=== PATIENT | female | born 1940 | race Caucasian/White ===

== ENCOUNTER 2017-04-02 10:22 | Day surgery (SDC) | payer MEDICARE, OTHER ==
--- NOTE | ~2017-04-02 | EGD ---
EGD REPORT [facility] [address] [address] NAME: LILLY MARIE : [birth year] STATUS : REG [facility] [place] PAT#: [id number] AGE: 77 ADM/REG DATE : 04/02/17 MR#: [id number] REPORT SERV DATE: 04/02/17 DICTATED BY: WINNIE FIGUEROA DATE: 04/02/17 REPORT STATUS : Draft TRANSCRIBED BY: [facility] DATE: 04/02/17 Endoscopy Center Patient Name: Lilly Marie Date of : 1940 Attending MD: WINNIE FIGUEROA MD Procedure Date No Time: 04/02/2017 Procedure: Upper GI endoscopy Indications: Epigastric abdominal pain, Dysphagia, Gastro-esophageal reflux disease Referring MD: KIMBERLY HUFF Medicines: Propofol per Anesthesia Complications: No immediate complications. Procedure: Pre-Anesthesia Assessment: - ASA Grade Assessment: III - A patient with severe systemic disease. After obtaining informed consent, the endoscope was passed under direct vision. Throughout the procedure, the patient's blood pressure, pulse, and oxygen saturations were monitored continuously. The GIF [id number] was introduced through the mouth, and advanced to the third part of duodenum. The upper GI endoscopy was accomplished without difficulty. The patient tolerated the procedure well. Findings: Non-severe esophagitis with no bleeding was found in the entire esophagus. No endoscopic abnormality was evident in the esophagus to explain the patient's complaint of dysphagia. It was decided, however, to proceed with dilation. A guidewire was placed and the scope was withdrawn. Dilation was performed with a Savary dilator with mild resistance at 60 Fr. The esophagus looked satisfactory post dilation A small hiatus hernia was present. Seen on retroflexion, done prior to dilation Diffuse mild inflammation characterized by congestion (edema) and erythema was found in the entire examined stomach. Localized mild inflammation characterized by congestion (edema) and erythema was found in the duodenal bulb. The 2nd part of the duodenum and 3rd part of the duodenum were normal. Impression: - Non-severe reflux esophagitis. - No endoscopic esophageal abnormality to explain patient's dysphagia. Esophagus dilated. Dilated. - Hiatus hernia. - Gastritis. EGD REPORT [address] [address] NAME: LILLY MARIE : [birth year] STATUS : REG [facility] [place] PAT#: [id number] AGE: 77 ADM/REG DATE : 04/02/17 MR#: [id number] REPORT SERV DATE: 04/02/17 DICTATED BY: WINNIE FIGUEROA DATE: 04/02/17 REPORT STATUS : Draft TRANSCRIBED BY: [employer] DATE: 04/02/17 - Duodenitis. - Normal 2nd part of the duodenum and 3rd part of the duodenum. Recommendation: - Patient has a contact number available for emergencies. The signs and symptoms of potential delayed complications were discussed with the patient. Return to normal activities tomorrow. Written discharge instructions were provided to the patient. - Clear liquid diet today. - diet is clear liquid today, full liquid tomorrow, soft mushy food the next day, and resume usual diet the day after that. - Continue present medications. - Use Protonix (pantoprazole) 40 mg PO BID. - take 30-60 minutes before breakfast and supper - Use sucralfate tablets 1 gram PO QID. - take before each meal and at bedtime - Return to my office as previously scheduled. - Discharge patient to home. Procedure Code(s): --- Professional --- 47678, Esophagogastroduodenoscopy, flexible, transoral; with insertion of guide wire followed by passage of dilator(s) through esophagus over guide wire Diagnosis Code(s): --- Professional --- K21.0, Gastro-esophageal reflux disease with esophagitis R13.10, Dysphagia, unspecified K44.9, Diaphragmatic hernia without obstruction or gangrene K29.70, Gastritis, unspecified, without bleeding K29.80, Duodenitis without bleeding R10.13, Epigastric pain CPT copyright 2013 [employer]. All rights reserved. The codes documented in this report are preliminary and upon professional caster review may be revised to meet current compliance requirements. Winnie Figueroa MD WINNIE FIGUEROA MD 04/02/2017 3:03 PM This report has been signed electronically. Number of Addenda: 0 EGD REPORT [facility] [address] [place] [address] NAME: LILLY MARIE JACOB : [birth year] STATUS : REG [facility] [place] PAT#: [id number] AGE: 77 ADM/REG DATE : 04/02/17 MR#: [id number] REPORT SERV DATE: 04/02/17 DICTATED BY: WINNIE FIGUEROA DATE: 04/02/17 REPORT STATUS : Draft TRANSCRIBED BY: [employer] [facility] DATE: 04/02/17 Note Initiated On: 04/02/2017 2:19 PM Scope Withdrawal Time 0 hours 0 minutes 0 seconds [address] [place] [address]
[~2017-04-02 10:22] MED LIST: ALLEGRA180 PO; AMB10 PO; AT25 PO; BENTYL10 PO; CALTRA600D PO; CALTRAT600 PO; CELEXA10 PO; CELEXA20 PO; CENTRUM TAB1 TAB PO; CO Q-10100 MG PO; COENZYME Q10 PO; CYANO1000T PO; CYMBALTA30 PO; DAPSONE25 MG OR; DAPSONE25 MG PO; ESTRACE1 MG PO; ESTRADIOL PO; FISH-EPA1000 MG PO; FLONASE NAS; IRON325 MG PO; LEVAQUIN750 MG PO; LEVSINTAB PO; LOTE10 PO; LOTE20 PO; LOTE40 PO; LYRICA100 MG PO; M-CLEAR WC PO; MELATONIN5 M1 PO; MEVACOR PO; MULTIVIT/MIN PO; NEXIUM20 M1 PO; NEXIUM40 PO; NORCO1 TA1 PO; OMNICEF300 PO; PCET PO; PLAVIX PO; PRAVACHOL40 MG PO; PREV15 PO; PROBIOTIC OTC PO; PROTONIX PO; PROZAC PO; RANITIDINE300 MG PO; RELA5 PO; SUCR PO; SYMBICORT 160/41 INH; TEARS NATURA OPH; TRAZ50 PO; ULTRAM50 PO; VENTOLIN HFA PO; ZOCOR20 PO; ZOCOR40 PO; [UNRECOGNIZED DRUG - OTHER] PO
[2017-05-12] MEDS ORDERED: KAPIDEX60 MG PO (11:49)
[2017-07-13] MEDS ORDERED: PLAVIX PO (21:44)
[2017-07-13] MEDS ORDERED: PROZAC PO (21:45)
[2017-07-13] MEDS ORDERED: KAPIDEX60 MG PO (21:45)
[2017-07-13] MEDS ORDERED: LOTE10 PO (21:45)
[2017-07-13] MEDS ORDERED: CALTRA600D PO (21:46)
[2017-07-13] MEDS ORDERED: ZANTAC 150 PO (21:47)
[2017-07-13] MEDS ORDERED: BALANCE PO (21:47)
[2017-07-13] MEDS ORDERED: CO Q-10100 MG PO (21:47)
[2017-07-13] MEDS ORDERED: BENTYL10 PO (21:48)
== END 2017-04-02 23:59 | disposition home health service (06) ==
LOC: DMU 10:22
PROVIDERS: Internal Medicine Gastroenterology
PROC: 0D758ZZ Dilation of Esophagus, Via Natural or Artificial Opening Endoscopic (ICD-10-PCS; principal; 2017-04-02 11:30)
DX: K21.0 Gastro-esophageal reflux disease with esophagitis (principal); K44.9 Diaphragmatic hernia without obstruction or gangrene; K29.70 Gastritis, unspecified, without bleeding; K29.80 Duodenitis without bleeding; I25.10 Atherosclerotic heart disease of native coronary artery without angina pectoris; I10 Essential (primary) hypertension; F32.9 Major depressive disorder, single episode, unspecified; D64.9 Anemia, unspecified; Z88.2 Allergy status to sulfonamides; Z88.5 Allergy status to narcotic agent; Z88.8 Allergy status to other drugs, medicaments and biological substances; M19.90 Unspecified osteoarthritis, unspecified site; Z90.49 Acquired absence of other specified parts of digestive tract; Z90.710 Acquired absence of both cervix and uterus; Z98.890 Other specified postprocedural states